=== PATIENT | female | born 1955 | race Caucasian/White ===

== ENCOUNTER → 2023-09-07 10:42 | Outpatient (REF) | payer MEDICARE, SELFPAY | LOC: RAD 10:42 | PROVIDERS: ATTENDING PHYSICIAN Student in an Organized Health Care Education/Training Program; FAMILY PHYSICIAN Physician Assistant Medical | DX: H92.02 Otalgia, left ear (principal) | CPT/HCPCS: 76536 ==

== ENCOUNTER → 2023-10-25 08:40 | Outpatient (REF) | payer MEDICARE, SELFPAY | LOC: HWWDC 08:40 | PROVIDERS: ATTENDING PHYSICIAN Obstetrics & Gynecology Gynecology; FAMILY PHYSICIAN Physician Assistant Medical | DX: Z85.3 Personal history of malignant neoplasm of breast (principal); Z12.31 Encounter for screening mammogram for malignant neoplasm of breast | CPT/HCPCS: 77063; 77067 ==

== ENCOUNTER → 2024-10-06 07:37 | Outpatient (REF) | payer MEDICARE, SELFPAY ==
[2024-10-06 10:46] LABS: ALT (SGPT) 25 U/L (0-35); AST (SGOT) 25 U/L (14-36); Albumin 4.5 g/dl (3.5-5.0); Alkaline Phosphatase 56 U/L (38-126); Blood Urea Nitrogen 17 mg/dl (7-17); Calcium 9.3 mg/dl (8.4-10.2); Carbon Dioxide 27 mmol/L (22-30); Chloride 106 mmol/L (98-107); Glucose 95 mg/dl (70-99); Potassium 4.6 mmol/L (3.5-5.1); Sodium 140 mmol/L (135-145); Total Protein 7.3 g/dl (6.3-8.2); eGFR > 60.00
[2024-10-06 11:00] LABS: Vitamin D, 25-OH*** 61.7 ng/mL (30-80)
== END ==
LOC: HWRAD 07:37
PROVIDERS: ATTENDING PHYSICIAN Internal Medicine Rheumatology; PRIMARYCARE PHYSICIAN Physician Assistant Medical
DX: M81.0 Age-related osteoporosis without current pathological fracture (principal); E55.9 Vitamin D deficiency, unspecified
CPT/HCPCS: 36415; 77080; 80053; 82306

== ENCOUNTER → 2024-11-14 08:49 | Outpatient (REF) | payer MEDICARE, SELFPAY | LOC: HWWDC 08:49 | PROVIDERS: ATTENDING PHYSICIAN Physician Assistant Medical; REFERRING PHYSICIAN Obstetrics & Gynecology Gynecology | DX: Z12.31 Encounter for screening mammogram for malignant neoplasm of breast (principal) | CPT/HCPCS: 77063; 77067 ==